=== PATIENT | male | born 1960 | race Caucasian/White ===

== ENCOUNTER → 2019-02-21 06:20 | Outpatient (CLI) | payer OTHER, SELFPAY ==
--- NOTE | 2019-02-21 06:35 | MRI_ITS ---
HISTORY: R tinnitus EXAMINATION: MR Brain Attn IACs WO/W Contrast TECHNIQUE: Multiplanar and multisequence MR images of the brain and small field of view sequences of the internal auditory canals were obtained before and after the administration of IV contrast. IV Contrast dosage and agent: 18 cc Dotarem COMPARISON: None FINDINGS: The exam is of good quality. The motion artifact. The right and left internal auditory canals are symmetrical and show normal signal. No mass, pathologic enhancement, or inflammatory change. Normal cerebellopontine angle regions bilaterally. No evidence of acoustic schwannoma. As visualized, the mastoids and paranasal sinuses are clear. Normal ventricles. Age appropriate cerebral cortical atrophy. No white matter disease is seen. No intracranial mass, hemorrhage, or acute parenchymal abnormality. Posterior fossa and midline structures show no signal abnormality. No enhancing lesion or extra-axial fluid collection. Normal flow voids within the major vessels. MRI/Brain W/WO Contrast IMPRESSION: 1. Normal internal auditory canals. No evidence of acoustic schwannoma or other significant findings. 2. Normal MRI brain without and with contrast. at 0501 Reported and signed by: Ángel Dickson MD Electronically Signed: Ángel Dickson, at 5:00 EDT Tel , Service support ,
--- NOTE | 2019-02-21 06:36 | MRI_ITS ---
STUDY: MRA OF THE HEAD WITHOUT CONTRAST REASON FOR EXAM: Male, 59 years old. Right tinnitus TECHNIQUE: 3-D [id number] (TOF) imaging was performed with MIPs. The study was performed unenhanced. COMPARISON: None. FINDINGS: Normal bilateral petrous carotid arteries. Normal right cavernous carotid artery with a normal supraclinoid bifurcation. Normal left cavernous carotid artery with a normal supraclinoid bifurcation. Normal right A1 segments of the anterior cerebral artery. Normal left A1 segments of the anterior cerebral artery. Normal intact anterior communicating artery (ACOM). Normal bilateral A2 segments of the anterior cerebral arteries. Normal right M1 and M2 segments of the middle cerebral arteries, with a normal M1 bifurcation. Normal left M1 and M2 segments of the middle cerebral arteries, with a normal M1 bifurcation. There is non-visualization of the right posterior communicating artery (PCOM). There is non-visualization of the left posterior communicating artery (PCOM). Normal bilateral vertebral arteries. Normal basilar artery with a normal basilar bifurcation. The visualized bilateral superior cerebellar (SCA) arteries are normal. Normal bilateral P1, P2 and visualized P3 segments of the posterior cerebral arteries. There is no demonstrated aneurysm of the [place]. There is no major vessel occlusion or hemodynamically significant stenosis. There is no demonstrated abnormality of the visualized brain. MRI/MRA Head ONLY without Contrast IMPRESSION: Normal MRA of the head Electronically Signed: Ludin Fu, at 7:59 EDT Tel , Service support ,
== END ==
PROVIDERS: Family Provider Family Medicine; PCP Family Medicine; Referring Provider Otolaryngology Otolaryngology/Facial Plastic Surgery; Visit Provider Otolaryngology Otolaryngology/Facial Plastic Surgery
DX: H93.A1 Pulsatile tinnitus, right ear (principal); H91.91 Unspecified hearing loss, right ear
CPT/HCPCS: 70544; 70553; A9575